=== PATIENT | female | born 1990 | race Caucasian/White ===

== ENCOUNTER 2018-08-04 19:55 | Emergency (ER) | payer MEDICAID ==
[~2018-08-04] VITALS: Ht 154.9 cm; Wt 45.0 kg
[2018-08-04] MEDS ORDERED: TETanus/Pertussis (Acell)/Diphther VAC/PF (Tdap-Adult) 0.5ml syringe IMVAC ONE (20:20)
[2018-08-04] MEDS ORDERED: AMOX-422 PO (21:40)
[2018-08-04 22:01] VITALS: BP 133/88
== END 2018-08-04 22:04 | disposition home or self-care (01) ==
LOC: ER 19:56
DX: S61.451A Open bite of right hand, initial encounter (principal); S61.411A Laceration without foreign body of right hand, initial encounter; W54.0XXA Bitten by dog, initial encounter; Y93.89 Activity, other specified; Y92.89 Other specified places as the place of occurrence of the external cause; Y99.9 Unspecified external cause status
CPT/HCPCS: 90471; 90715; 99283